=== PATIENT | female | born 1980 | race Caucasian/White ===

== ENCOUNTER 2017-02-13 16:02 | Emergency (ER) | payer OTHER ==
[~2017-02-13] VITALS: Wt 72.6 kg
[~2017-02-13 16:02] MED LIST: AMOXICILLIN500 MG PO; ANAPROX DS550 MG PO; ATARAX25 MG PO; BACTRIM DS 8001 TA1 PO; BIRTH CONTROL1 EAC1 PO; CIPROFLOXACIN500 MG PO; CLARITIN-D 12 H1 TAB PO; CLARITIN10 MG PO; COLACE1 SUP RC; FLAGYL500 MG PO; GLIPIZIDE ER10 M1 PO; HUMALOG 751 UNIT/0.0 SC; LIDEX0.05% T; LIPITOR20 MG PO; LIPITOR40 MG PO; METFORMIN1000 MG PO; MOTRIN 800 MG E4 TAB PO; MOTRIN800 MG PO; MYCELEX TROCHE10 MG MM; OMEPRAZOLE40 MG PO; PREDNICOT20 MG PO; PRENATAL1 TA3 PO; PRILOSEC10 MG/Pack PO; PRILOSEC20 MG PO; SALINE MIST 4545 ML NAS; SYNTHROID,LEV112 MCG PO; THYROID MED PO; TYLENOL WITH CO1 TA1 PO; ULTRAM50 MG PO; ZANTAC 150150 MG PO; ZANTAC150 MG PO; ZITHROMAX Z PA250 MG PO; ZOFRAN ODT4 MG PO; ZOFRAN ODT4 MG SL; ZOFRAN ODT8 MG PO; ZOFRAN4 MG PO
[2017-02-13 16:50] LABS: BASO # 0.1 10*3/uL (0.0-0.1); BASO % 0.7 % (0.0-1.0); EOS % 0.4 % (1.0-4.0); HEMATOCRIT 36.8 % (37.0-47.0); IG # 0.1 10*3/uL (0.0-0.1); LYMPH # 0.9 10*3/uL (1.3-4.4); LYMPH % 12.7 % (27.0-41.0); MEAN CELL VOLUME 85.8 fl (81.0-99.0); MEAN CORPUSCULAR HGB 25.6 pg (27.0-31.0); MEAN CORPUSCULAR HGB CONC 29.9 g/dl (33.0-37.0); MEAN PLATELET VOLUME 8.6 fl (9.6-12.3); MONO # 0.9 10*3/uL (0.1-1.0); MONO % 12.6 % (3.0-9.0); NEUT # 5.1 10*3/uL (2.3-7.9); NEUT % 72.9 % (47.0-73.0); PLATELET COUNT AUTOMATED 334 10*3/uL (130-400); RED BLOOD COUNT 4.29 10*6/uL (4.10-5.10); RED CELL DISTRI WIDTH 18.3 % (0-14.5)
[2017-02-13 17:11] LABS: ALBUMIN 2.7 gm/dl (3.1-4.5); ALKALINE PHOSPHATASE 103 U/L (45-117); BILIRUBIN, TOTAL 0.6 mg/dl (0.2-1.0); BUN 5 mg/dl (7-24); CARBON DIOXIDE 23 mmol/L (21-32); CHLORIDE 106 mmol/L (98-107); CPK 35 U/L (26-192); EST GLOM FILT AFRICAN AMERICAN > 60 ml/min; GLUCOSE 86 mg/dL (65-99); MAGNESIUM 1.8 mg/dL (1.5-2.1); POTASSIUM 3.7 mmol/L (3.5-5.1); SGOT/AST 105 IU/L (3-35); SGPT/ALT 17 U/L (12-78); SODIUM 141 mmol/L (136-145); TOTAL PROTEIN 7.6 gm/dL (6.4-8.2)
[2017-02-13 17:12] LABS: CKMB < 0.5 ng/ml (0.5-3.6); TROPONIN I < 0.015 ng/ml (<0.045)
[2017-02-13 17:19] LABS: LDH 3142 U/L (84-246)
[2017-02-13] MEDS ORDERED: PHENERGAN25 M3 PO (18:42)
[2017-02-13] MEDS ORDERED: ZITHROMAX250 MG PO (18:42)
[2017-02-13] MEDS ORDERED: ZOFRAN4 MG/5 ML PO (18:42)
[2017-02-13] MEDS ORDERED: LEVAQUIN750 M1 PO (18:59)
== END 2017-02-14 01:08 | disposition home or self-care (01) ==
LOC: ED 16:02
PROVIDERS: Physician Assistant
DX: J18.1 Lobar pneumonia, unspecified organism (principal); R11.2 Nausea with vomiting, unspecified; Z98.890 Other specified postprocedural states; Z90.49 Acquired absence of other specified parts of digestive tract; Z79.899 Other long term (current) drug therapy; Z88.0 Allergy status to penicillin; Z88.5 Allergy status to narcotic agent; Z88.1 Allergy status to other antibiotic agents; Z85.3 Personal history of malignant neoplasm of breast

== ENCOUNTER 2017-02-17 12:38 | Emergency (ER) | payer OTHER ==
[~2017-02-17] VITALS: Wt 74.8 kg
[~2017-02-17 12:38] MED LIST changes: +LEVAQUIN750 M1 PO; +PHENERGAN25 M3 PO; +ZITHROMAX250 MG PO; +ZOFRAN4 MG/5 ML PO
[2017-02-17] MEDS ORDERED: LEVAQUIN750 M1 PO (13:10)
[2017-02-17 14:13] LABS: BASO % 0.5 % (0.0-1.0); EOS % 0.5 % (1.0-4.0); HEMATOCRIT 35.8 % (37.0-47.0); HEMOGLOBIN 10.9 g/dl (12.0-16.0); LYMPH # 0.4 10*3/uL (1.3-4.4); LYMPH % 7.4 % (27.0-41.0); MEAN CELL VOLUME 85.9 fl (81.0-99.0); MEAN CORPUSCULAR HGB 26.1 pg (27.0-31.0); MEAN CORPUSCULAR HGB CONC 30.4 g/dl (33.0-37.0); MEAN PLATELET VOLUME 9.2 fl (9.6-12.3); MONO # 0.6 10*3/uL (0.1-1.0); MONO % 10.2 % (3.0-9.0); NEUT # 4.6 10*3/uL (2.3-7.9); NEUT % 80.9 % (47.0-73.0); PLATELET COUNT AUTOMATED 281 10*3/uL (130-400); RED BLOOD COUNT 4.17 10*6/uL (4.10-5.10); RED CELL DISTRI WIDTH 18.4 % (0-14.5); WHITE BLOOD COUNT 5.7 10*3/uL (4.8-10.8)
[2017-02-17 14:26] LABS: ALBUMIN 2.1 gm/dl (3.1-4.5); ALKALINE PHOSPHATASE 110 U/L (45-117); BILIRUBIN, TOTAL 0.6 mg/dl (0.2-1.0); BUN 8 mg/dl (7-24); CARBON DIOXIDE 27 mmol/L (21-32); CHLORIDE 104 mmol/L (98-107); EST GLOM FILT AFRICAN AMERICAN > 60 ml/min; GLUCOSE 90 mg/dL (65-99); POTASSIUM 3.6 mmol/L (3.5-5.1); SGOT/AST 120 IU/L (3-35); SGPT/ALT 19 U/L (12-78); SODIUM 141 mmol/L (136-145); TOTAL PROTEIN 6.7 gm/dL (6.4-8.2)
[2017-02-17 14:56] LABS: BILIRUBIN NEGATIVE (NEGATIVE); BLOOD NEGATIVE (NEGATIVE); CLARITY SL CLOUDY (CLEAR); COLOR YELLOW (YELLOW); GLUCOSE NEGATIVE (NEGATIVE); KETONE 1+ (NEGATIVE); LEUKO ESTERASE NEGATIVE (NEGATIVE); NITRITE NEGATIVE (NEGATIVE); PROTEIN TRACE (NEGATIVE); SPECIFIC GRAVITY >= 1.030 (1.005-1.030); UROBILINOGEN 0.2 E.U./dl (0.2-1.0)
[2017-02-17 15:03] LABS: MUCOUS 1+; URINE REFLEX COMMENT NO (NO)
[2017-02-17 16:07] LABS: LA>2 REFLEX 2 HR DRAW NOW
[2017-02-17] MEDS ORDERED: ZOFRAN4 MG/5 ML PO (16:21)
== END 2017-02-17 17:08 | disposition home or self-care (01) ==
LOC: ED 12:38
PROVIDERS: Physician Assistant
DX: R11.2 Nausea with vomiting, unspecified (principal); R19.7 Diarrhea, unspecified; G89.29 Other chronic pain; M25.552 Pain in left hip; M25.551 Pain in right hip; Z90.49 Acquired absence of other specified parts of digestive tract; Z98.890 Other specified postprocedural states; Z79.899 Other long term (current) drug therapy; Z88.5 Allergy status to narcotic agent; Z88.1 Allergy status to other antibiotic agents; Z88.0 Allergy status to penicillin

== ENCOUNTER 2017-03-31 15:43 | Inpatient (IN) | payer MEDICARE, MEDICAID ==
[~2017-03-31] VITALS: Ht 167.6 cm; Wt 64.4 kg
--- NOTE | ~2017-03-31 | PR ---
[place], [place] PROGRESS NOTE NAME: ARI JENKINS UNIT #: [id number] ROOM: 422 DOCTOR: MAREK EARLY MD BIRTHDATE: [birth year] DOS: 04/05/2017 SUBJECTIVE: The patient is doing much better. Alert and responsive. REVIEW OF SYSTEMS: HEENT: No trouble swallowing. No double vision. No loss of vision. No pain. ENT AND RESPIRATORY: No wheeze. No change in voice. No cough. No shortness of breath. No coughing up blood. No epistaxis. CARDIOLOGIC: No chest pain. No dizziness. No irregular heartbeat. No leg edema. No palpitations. No shortness of breath. HEMATOLOGIC AND LYMPH: No past transfusion. No fatigue. No loss of appetite. No easy bruising. GASTROENEROLOGIC: No change in bowel habits. No vomiting blood. No abdominal cramping. No nausea. No vomiting. No diarrhea. No constipation. No blood in stool. FEMALE REPRODUCTIVE: No dyspareunia. No pelvic pain. MUSCULOSKELETAL: No back pain. No muscle pain or weakness. No tingling/numbness. UROLOGIC: No pain with urination. No difficulty urinating. No frequent urination. NEUROLOGIC: No burning pain in feet. No trouble with coordination. No loss of consciousness. No headache. No tingling/numbness. No memory loss. PHYSICAL EXAMINATION: GENERAL: Pleasant woman, in no apparent distress. VITAL SIGNS: Blood pressure 107/71, respirations 18, pulse 102, temperature 98.1. HEENT: Normocephalic, atraumatic. NECK AND THYROID: Supple. No JVD, thyromegaly, or lymphadenopathy. HEART: Normal S1, S2. Regular rate and rhythm. LUNGS: Clear to auscultation and percussion. ABDOMEN: Soft. Nontender, nondistended. Bowel sounds present. EXTREMITIES: Normal ROM. No clubbing. No edema. LABORATORY DATA: White count of 3.6, hemoglobin 10.3, hematocrit 33.4 and platelet count 165, ANC of 2400. ASSESSMENT: 1. Neutropenia, which has resolved. 2. Anemia of neoplastic disorder, status post packed RBC transfusion. 3. Metastatic breast cancer. PLAN: Isolation was stopped as well as we will stop the growth factors and follow her counts. Her ANC is in decent range. The patient was advised if any fever, chills, any weakness, tiredness, to call, otherwise close followup. We will review peripheral smears. Ample time was given to the patient to ask me questions. [place], [place] PROGRESS NOTE NAME: ARI JENKINS UNIT #: [id number] ROOM: 422 DOCTOR: MAREK EARLY MD BIRTHDATE: [birth year] MAREK EARLY MD CM:MIN [phone] MAREK EARLY MD 04/06/17 0147 interface
--- NOTE | ~2017-03-31 | PR ---
[place], [place] PROGRESS NOTE NAME: ARI JENKINS UNIT #: [id number] ROOM: 422 DOCTOR: MAREK EARLY MD BIRTHDATE: [birth year] DOS: 04/04/2017 SUBJECTIVE: The patient is doing better. She is eating her breakfast. PHYSICAL EXAMINATION: GENERAL: She is a pleasant woman in no apparent distress. VITAL SIGNS: Stable. She is afebrile. HEENT: Normocephalic, atraumatic NECK AND THYROID: Supple. No JVD, thyromegaly, or lymphadenopathy. HEART: Normal S1, S2. Regular rate and rhythm. LUNGS: Clear to auscultation and percussion. ABDOMEN: Soft. Nontender, nondistended. Bowel sounds present. EXTREMITIES: Normal ROM. No clubbing. No edema. LABORATORY DATA: of 1.3, hemoglobin of 8.1, hematocrit 26.1, platelet of 143. ASSESSMENT: 1. Neutropenia and anemia secondary to chemotherapy. 2. Metastatic breast cancer. 3. Possible right lower lobe pneumonia. PLAN: She will continue the growth factors. We will be giving her a unit of packed RBC depending on the further intervention. I had detailed discussion with the patient. Her white count is getting better. MAREK EARLY MD CM:PNTRANS [phone] MAREK EARLY MD 04/05/17 0109 interface
--- NOTE | ~2017-03-31 | CON ---
[place], [place] REPORT OF CONSULTATION NAME: ARI JENKINS UNIT #: [id number] ROOM: 422 DOCTOR: MAREK EARLY MD BIRTHDATE: [birth year] DOS: 04/03/17 HISTORY OF PRESENT ILLNESS: The patient is a pleasant 36-year-old [place] woman with a history of metastatic breast cancer. A few days before admission, she started complaining of shortness of breath and chest pain. The pain was midsternal, localized, at the scale of 9/10, which has been lasting for about an hour. She also is having some diarrhea. She recently got chemotherapy at [facility] and was admitted for further evaluation. On routine CBC exam, was found to be neutropenic and consulted for further evaluation and management. PAST MEDICAL HISTORY: Metastatic breast cancer with possible mets to the lung, liver and bones, status post chemotherapy last week, probably with the Taxol and Herceptin. The patient not sure undergoing chemotherapy for the last 2 years at [facility], history of type 2 diabetes mellitus, DVTs, pulmonary embolus as described above, mets to the brain, liver, lung, bone in 2015, mixed hyperlipidemia. PAST SURGICAL HISTORY: Total mastectomy of the left breast, history of foot surgery, history of nevus excision, history of cholecystectomy, foot surgery, history of right knee surgery. SOCIAL HISTORY: No smoking, drinking, or drug abuse. FAMILY HISTORY: Mother had throat cancer at age 56. Father had heart problems and diabetes, age 58. ALLERGIES: PENICILLIN, ERYTHROMYCIN, HYDROCODONE, VANCOMYCIN. MEDICATIONS: Xanax, ibuprofen, Morphine sulfate, Zofran, oxycodone. REVIEW OF SYSTEMS: CONSTITUTIONAL: No chills. No fatigue. No fever. No loss of appetite. No night sweats. No weakness. No weight loss. HEENT: No trouble swallowing. No loss of smell. No loss of hearing. No double vision. No pain. No discharge. ENT AND RESPIRATORY: No wheeze. No sore throat. No change in voice. No hearing loss. No nose bleed. No cough. No trouble breathing through nose. No shortness of breath. No coughing up blood. No epistaxis. CARDIOVASCULAR: No chest pain. No dizziness. No irregular heartbeat. No leg edema. No pain in legs while walking. No palpitations. No shortness of breath. DERMATOLOGIC: No acne. No hives. No laceration. No mole. No rash. ENDOCRINE: No cold intolerance. No diabetes. No fatigue. No hot flashes. No polydipsia. No polyuria. No urinating frequently. No weight loss. HEMATOLOGIC AND LYMPH: No fatigue. No easy bruising. GASTROENTEROLOGIC: No change in bowel habits. No indigestion. No frequent bloating. No vomiting blood. No abdominal cramping. No nausea. No heartburn. No vomiting. No abdominal pain. No dysphagia. No diarrhea. No constipation. No blood in stool. FEMALE REPRODUCTIVE: No vaginal itching. No difficulty urinating. No heavy [place], [place] REPORT OF CONSULTATION NAME: ARI JENKINS UNIT #: [id number] ROOM: [facility] DOCTOR: MAREK EARLY MD BIRTHDATE: [birth year] periods. No dyspareunia. No sexually active. No dysmenorrhea. No pelvic pain. No breast pain. No nipple discharge. No abnormal vaginal discharge. No hot flashes. MUSCULOSKELETAL: No back pain. No muscle pain or weakness. No neck pain. No tingling/numbness. No swelling/bruising. No osteoporosis treatment. OPTHALMOLOGIC: No double vision. No diminished vision. No loss of vision. UROLOGIC: No dysuria. No frequent nighttime urination. No irregular periods. No pain with urination. No difficulty urinating. No blood in urine. No frequent urination. No urinary incontinence. NEUROLOGIC: No loss of sensation in specific body area. No vertigo. No burning pain in feet. No trouble with balance. No trouble with coordination. No loss of consciousness. No loss of feeling/power. No confusion. No headache. No tingling/numbness. PSYCHOLOGIC: No tinnitus. No headaches. No shortness of breath. No weight decrease. No nausea. No vomiting. No abdominal discomfort. No constipation. No diarrhea. No depression. No anxiety. PHYSICAL EXAMINATION: GENERAL: Pleasant woman in no apparent distress. VITAL SIGNS: Stable. She is afebrile. HEENT: Oral mucosa appears intact. The external ears are normal in appearance. Nares are patent without lesions, exudates, erythema, or inflammation. Tongue is symmetrical. Uvula is midline. NECK AND THYROID: Neck supple without palpable masses. Trachea is midline. No thyromegaly. No carotid bruit or JVD. BREASTS: Normal. Nipples unremarkable. No drainage. No lumps felt on either side. HEART: Normal S1, S2, without significant murmur, rub, or gallop. LUNGS: Clear to auscultation and percussion with good air entry bilaterally. The patient is breathing easily without the use of accessory muscles. Diaphragmatic excursions are intact. ABDOMEN: No costovertebral angle tenderness. Soft. No organomegaly or masses. Nontender. No hernias present. Liver and spleen are not palpable. LYMPHATIC: No adenopathy noted in the cervical, supraclavicular, axillary, or inguinal regions. NEUROLGIC: Nonfocal. Oriented to person, place, and time. MENTAL STATUS: Appropriate for mood and affect. PERIPHERAL PULSES: No varicosities. Femoral and pedal pulses are palpable. EXTREMITIES: Without cyanosis, clubbing, or edema. No gross anomalies. LABORATORY DATA: White count of 0.9, hemoglobin 8.7, hematocrit 28.0, platelet count of 139,000. Chemistries: Glucose of 89, EGFR more than 60. Sodium 144, potassium 3.4, chloride 110, calcium 6.9, total protein 5.8, albumin 2.1, SGOT 31, SGPT 9, alkaline phosphatase 86. ASSESSMENT: 1. Pancytopenia, especially neutropenia secondary to chemotherapy which she recently received in. 2. History of metastatic breast cancer with mets to the brain, lung, liver and bones. [place], [place] REPORT OF CONSULTATION NAME: ARI JENKINS UNIT #: [id number] ROOM: 422 DOCTOR: MAREK EARLY MD BIRTHDATE: [birth year] 3. Possible right lower lobe pneumonia. 4. Diabetes mellitus. PLAN: The patient was started on broad spectrum antibiotics. We will start her on growth factors, neutropenic precautions. Review peripheral smears records from [facility]. Depending upon that, further intervention. I had detailed discussion with the patient about it, seemed to understand it. Ample time was given to the patient to ask me questions. We will follow. Thanks for consulting and letting me participate in the care of this interesting patient. MAREK EARLY MD CM:CONSTR:REPORT OF CONSULTATION 0846 BED 04/04/17 0905 MARCELINO JANSEN [facility].BED
--- NOTE | ~2017-03-31 | EKG ---
[place], [place] ELECTROCARDIOGRAM REPORT NAME: ARI JENKINS UNIT #: [id number] ROOM: 422 DOCTOR: TOMMIE LOGAN MD BIRTHDATE: [birth year] DOS: 03/31/2017 TIME: 18:03 p.m. Sinus tachycardia rate of 102. Poor precordial R-wave progression. Nonspecific ST changes, especially in the inferior and lateral leads. Abnormal electrocardiogram. TOMMIE LOGAN MD CM:EKGRPT:ELECTROCARDIOGRAM REPORT [id number] TOMMIE LOGAN MD
[2017-03-31 15:56] VITALS: BP 103/68
[2017-03-31 16:46] LABS: HEMATOCRIT 33.2 % (37.0-47.0); HEMOGLOBIN 10.3 g/dl (12.0-16.0); MEAN CELL VOLUME 82.8 fl (81.0-99.0); MEAN CORPUSCULAR HGB 25.7 pg (27.0-31.0); MEAN PLATELET VOLUME 10.6 fl (9.6-12.3); PLATELET COUNT AUTOMATED 156 10*3/uL (130-400); RED BLOOD COUNT 4.01 10*6/uL (4.10-5.10); RED CELL DISTRI WIDTH 15.4 % (0-14.5); WHITE BLOOD COUNT 2.1 10*3/uL (4.8-10.8)
[2017-03-31 17:00] LABS: INTERNATIONAL NORM RATIO 1.1 (2.0-3.5); PROTHROMBIN TIME 11.9 SECONDS (9.0-12.4)
[2017-03-31 17:06] LABS: ALBUMIN 2.6 gm/dl (3.1-4.5); BUN 7 mg/dl (7-24); C-REACTIVE PROTEIN 3.55 MG/DL (0-0.3); CARBON DIOXIDE 30 mmol/L (21-32); CHLORIDE 105 mmol/L (98-107); EST GLOM FILT AFRICAN AMERICAN > 60 ml/min; GLUCOSE 112 mg/dL (65-99); MAGNESIUM 1.5 mg/dL (1.5-2.1); POTASSIUM 3.1 mmol/L (3.5-5.1); SGOT/AST 50 IU/L (3-35); SGPT/ALT 11 U/L (12-78); SODIUM 143 mmol/L (136-145)
[2017-03-31 17:08] LABS: ALKALINE PHOSPHATASE 108 U/L (45-117); BILIRUBIN, TOTAL 0.7 mg/dl (0.2-1.0); CPK 36 U/L (26-192); TOTAL PROTEIN 7.1 gm/dL (6.4-8.2)
[2017-03-31 17:11] LABS: CKMB < 0.5 ng/ml (0.5-3.6); TROPONIN I < 0.015 ng/ml (<0.045)
[2017-03-31 17:19] LABS: BASOPHILS 1 % (0-1); EOSINOPHILS 1 % (1-4); LYMPHOCYTE # 0.4 10*3/uL (1.3-4.4); METAMYELOCYTES 2 % (0-0); NEUTROPHIL # 1.6 10*3/uL (2.3-7.9); NEUTROPHILS 77 % (47-73); TOTAL CELLS COUNTED 100 #CELLS
[2017-03-31 17:20] LABS: PLATELET SUFFICIENCY NORMAL (NORMAL)
[2017-03-31 17:38] LABS: BILIRUBIN 1+ (NEGATIVE); BLOOD NEGATIVE (NEGATIVE); CLARITY CLEAR (CLEAR); COLOR YELLOW (YELLOW); GLUCOSE NEGATIVE (NEGATIVE); KETONE TRACE (NEGATIVE); LEUKO ESTERASE NEGATIVE (NEGATIVE); NITRITE NEGATIVE (NEGATIVE); PROTEIN 1+ (NEGATIVE)
[2017-03-31 17:58] LABS: BACTERIA 2+; URINE REFLEX COMMENT YES (NO)
[2017-03-31 18:02] VITALS: BP 110/60
[2017-03-31 20:00] VITALS: BP 100/71
[2017-03-31 20:38] VITALS: BP 100/71
[2017-03-31] MEDS ORDERED: XANAX0.5 MG PO ×2 (22:16→22:20)
[2017-03-31] MEDS ORDERED: OXYCODONE HCL10 M1 PO ×2 (22:17→22:21)
[2017-03-31] MEDS ORDERED: IBU800 MG PO ×2 (22:19→22:22)
[2017-03-31] MEDS ORDERED: MORPHINE SULFAT15 M7 PO (22:23)
[2017-04-01] VITALS: BP 104/68
[2017-04-01 06:49] LABS: HEMATOCRIT 30.7 % (37.0-47.0); HEMOGLOBIN 9.4 g/dl (12.0-16.0); MEAN CELL VOLUME 84.3 fl (81.0-99.0); MEAN CORPUSCULAR HGB 25.8 pg (27.0-31.0); MEAN CORPUSCULAR HGB CONC 30.6 g/dl (33.0-37.0); MEAN PLATELET VOLUME 10.3 fl (9.6-12.3); PLATELET COUNT AUTOMATED 132 10*3/uL (130-400); RED BLOOD COUNT 3.64 10*6/uL (4.10-5.10); RED CELL DISTRI WIDTH 15.2 % (0-14.5)
[2017-04-01 07:18] LABS: HYPOCHROMIA SLIGHT; LYMPHOCYTE # 0.4 10*3/uL (1.3-4.4); METAMYELOCYTES 6 % (0-0); NEUTROPHIL # 0.6 10*3/uL (2.3-7.9); NEUTROPHILS 58 % (47-73); PLATELET SUFFICIENCY NORMAL (NORMAL); TEAR DROP CELLS FEW; TOTAL CELLS COUNTED 50 #CELLS; TOXIC GRANULATION SLIGHT
[2017-04-01 07:26] LABS: WHITE BLOOD COUNT 1.1 10*3/uL (4.8-10.8)
[2017-04-01 07:33] LABS: ALBUMIN 2.2 gm/dl (3.1-4.5); BILIRUBIN, TOTAL 0.5 mg/dl (0.2-1.0); BUN 5 mg/dl (7-24); CARBON DIOXIDE 27 mmol/L (21-32); CHLORIDE 110 mmol/L (98-107); CHOLESTEROL 69 mg/dL (<200); EST GLOM FILT AFRICAN AMERICAN > 60 ml/min; GLUCOSE 71 mg/dL (65-99); MAGNESIUM 1.5 mg/dL (1.5-2.1); PHOSPHOROUS 2.1 mg/dL (2.5-4.9); POTASSIUM 3.4 mmol/L (3.5-5.1); SGOT/AST 38 IU/L (3-35); SGPT/ALT 13 U/L (12-78); SODIUM 145 mmol/L (136-145); TOTAL PROTEIN 6.1 gm/dL (6.4-8.2); TRIGLYCERIDES 100 mg/dl (<150); VLDL CHOLESTEROL 20 mg/dL (6-40)
[2017-04-01 07:40] LABS: ALKALINE PHOSPHATASE 90 U/L (45-117); HDL CHOLESTEROL 20 mg/dl (40-60); LDL CHOLESTEROL 29 mg/dL (9-159)
[2017-04-01 08:00] VITALS: BP 130/81
[2017-04-01 08:39] LABS: VITAMIN D, 25-HYDROXY 40.1 ng/mL (30-100)
[2017-04-01 08:40] LABS: FOLIC ACID 3.45 ng/mL (>5.38)
[2017-04-01 12:00] VITALS: BP 115/60
[2017-04-01 16:00] VITALS: BP 90/65
[2017-04-01 20:00] VITALS: BP 114/65
[2017-04-02] VITALS: BP 97/49
[2017-04-02 06:22] LABS: HEMATOCRIT 26.2 % (37.0-47.0); HEMOGLOBIN 7.9 g/dl (12.0-16.0); MEAN CELL VOLUME 84.2 fl (81.0-99.0); MEAN CORPUSCULAR HGB 25.4 pg (27.0-31.0); MEAN CORPUSCULAR HGB CONC 30.2 g/dl (33.0-37.0); PLATELET COUNT AUTOMATED 117 10*3/uL (130-400); RED BLOOD COUNT 3.11 10*6/uL (4.10-5.10); RED CELL DISTRI WIDTH 15.5 % (0-14.5)
[2017-04-02 06:29] LABS: WHITE BLOOD COUNT 0.8 10*3/uL (4.8-10.8)
[2017-04-02 06:46] LABS: EOSINOPHILS 2 % (1-4); LYMPHOCYTE # 0.4 10*3/uL (1.3-4.4); MONOCYTE # 0.1 10*3/uL (0.1-1.0); NEUTROPHIL # 0.3 10*3/uL (2.3-7.9); NEUTROPHILS 40 % (47-73); PLATELET SUFFICIENCY LOW (NORMAL); TEAR DROP CELLS FEW; TOTAL CELLS COUNTED 50 #CELLS
[2017-04-02 06:47] LABS: TOXIC GRANULATION SLIGHT
[2017-04-02 06:55] LABS: BILIRUBIN, TOTAL 0.3 mg/dl (0.2-1.0); BUN 4 mg/dl (7-24); CARBON DIOXIDE 23 mmol/L (21-32); CHLORIDE 108 mmol/L (98-107); EST GLOM FILT AFRICAN AMERICAN > 60 ml/min; GLUCOSE 88 mg/dL (65-99); POTASSIUM 2.7 mmol/L (3.5-5.1); SGOT/AST 27 IU/L (3-35); SGPT/ALT 8 U/L (12-78); SODIUM 142 mmol/L (136-145)
[2017-04-02 06:56] LABS: ALKALINE PHOSPHATASE 77 U/L (45-117); TOTAL PROTEIN 5.6 gm/dL (6.4-8.2)
[2017-04-02 08:00] VITALS: BP 110/66
[2017-04-02 12:00] VITALS: BP 110/72
[2017-04-02 14:27] LABS: HEMOGLOBIN 9.2 g/dl (12.0-16.0); MEAN CELL VOLUME 84.3 fl (81.0-99.0); MEAN CORPUSCULAR HGB 25.8 pg (27.0-31.0); MEAN CORPUSCULAR HGB CONC 30.7 g/dl (33.0-37.0); MEAN PLATELET VOLUME 11.6 fl (9.6-12.3); PLATELET COUNT AUTOMATED 148 10*3/uL (130-400); RED BLOOD COUNT 3.56 10*6/uL (4.10-5.10); RED CELL DISTRI WIDTH 15.7 % (0-14.5)
[2017-04-02 14:47] LABS: BUN 2 mg/dl (7-24); CARBON DIOXIDE 27 mmol/L (21-32); CHLORIDE 110 mmol/L (98-107); EST GLOM FILT AFRICAN AMERICAN > 60 ml/min; GLUCOSE 86 mg/dL (65-99); SODIUM 145 mmol/L (136-145)
[2017-04-02 14:57] LABS: BASOPHILS 2 % (0-1); HYPOCHROMIA SLIGHT; LYMPHOCYTE # 0.4 10*3/uL (1.3-4.4); MONOCYTE # 0.1 10*3/uL (0.1-1.0); NEUTROPHIL # 0.4 10*3/uL (2.3-7.9); NEUTROPHILS 46 % (47-73); PLATELET SUFFICIENCY LOW (NORMAL); TOTAL CELLS COUNTED 50 #CELLS; TOXIC GRANULATION SLIGHT
[2017-04-02 15:00] LABS: WHITE BLOOD COUNT 0.8 10*3/uL (4.8-10.8)
[2017-04-02 15:04] LABS: MAGNESIUM 1.2 mg/dL (1.5-2.1); POTASSIUM 4.1 mmol/L (3.5-5.1)
[2017-04-02 16:00] VITALS: BP 104/57
[2017-04-02 20:00] VITALS: BP 127/64
[2017-04-03] VITALS: BP 114/73
[2017-04-03 06:08] LABS: HEMOGLOBIN 8.7 g/dl (12.0-16.0); MEAN CELL VOLUME 82.8 fl (81.0-99.0); MEAN CORPUSCULAR HGB 25.7 pg (27.0-31.0); MEAN CORPUSCULAR HGB CONC 31.1 g/dl (33.0-37.0); MEAN PLATELET VOLUME 10.8 fl (9.6-12.3); PLATELET COUNT AUTOMATED 139 10*3/uL (130-400); RED BLOOD COUNT 3.38 10*6/uL (4.10-5.10); RED CELL DISTRI WIDTH 15.4 % (0-14.5)
[2017-04-03 06:41] LABS: CHLORIDE 110 mmol/L (98-107); POTASSIUM 3.4 mmol/L (3.5-5.1); SODIUM 144 mmol/L (136-145)
[2017-04-03 06:44] LABS: BASOPHILS 2 % (0-1); EOSINOPHILS 2 % (1-4); LYMPHOCYTE # 0.3 10*3/uL (1.3-4.4); MONOCYTE # 0.1 10*3/uL (0.1-1.0); NEUTROPHIL # 0.4 10*3/uL (2.3-7.9); NEUTROPHILS 46 % (47-73); PLATELET SUFFICIENCY NORMAL (NORMAL); POLYCHROMASIA SLIGHT; TOTAL CELLS COUNTED 50 #CELLS
[2017-04-03 06:48] LABS: WHITE BLOOD COUNT 0.9 10*3/uL (4.8-10.8)
[2017-04-03 06:50] LABS: ALBUMIN 2.1 gm/dl (3.1-4.5); ALKALINE PHOSPHATASE 86 U/L (45-117); BILIRUBIN, TOTAL 0.4 mg/dl (0.2-1.0); BUN 1 mg/dl (7-24); CARBON DIOXIDE 25 mmol/L (21-32); EST GLOM FILT AFRICAN AMERICAN > 60 ml/min; GLUCOSE 89 mg/dL (65-99); SGOT/AST 31 IU/L (3-35); SGPT/ALT 9 U/L (12-78); TOTAL PROTEIN 5.8 gm/dL (6.4-8.2)
[2017-04-03 08:00] VITALS: BP 102/62
[2017-04-03 11:22] LABS: MAGNESIUM 2.5 mg/dL (1.5-2.1)
[2017-04-03 12:00] VITALS: BP 117/70
[2017-04-03 16:00] VITALS: BP 98/68
[2017-04-03 20:00] VITALS: BP 115/62
[2017-04-04] VITALS (15 sets, daily range): BP systolic 92–119; BP diastolic 43–82
[2017-04-04 06:36] LABS: HEMATOCRIT 26.1 % (37.0-47.0); HEMOGLOBIN 8.1 g/dl (12.0-16.0); MEAN CELL VOLUME 84.5 fl (81.0-99.0); MEAN CORPUSCULAR HGB 26.2 pg (27.0-31.0); PLATELET COUNT AUTOMATED 143 10*3/uL (130-400); RED BLOOD COUNT 3.09 10*6/uL (4.10-5.10); RED CELL DISTRI WIDTH 15.9 % (0-14.5)
[2017-04-04 06:58] LABS: BASOPHILS 2 % (0-1); LYMPHOCYTE # 0.3 10*3/uL (1.3-4.4); METAMYELOCYTES 2 % (0-0); MONOCYTE # 0.4 10*3/uL (0.1-1.0); NEUTROPHIL # 0.5 10*3/uL (2.3-7.9); NEUTROPHILS 42 % (47-73); PLATELET SUFFICIENCY NORMAL (NORMAL); POLYCHROMASIA SLIGHT; TOTAL CELLS COUNTED 50 #CELLS; TOXIC GRANULATION SLIGHT
[2017-04-04 07:00] LABS: WHITE BLOOD COUNT 1.3 10*3/uL (4.8-10.8)
[2017-04-04 07:02] LABS: ALBUMIN 1.8 gm/dl (3.1-4.5); ALKALINE PHOSPHATASE 79 U/L (45-117); BILIRUBIN, TOTAL 0.3 mg/dl (0.2-1.0); CARBON DIOXIDE 24 mmol/L (21-32); CHLORIDE 112 mmol/L (98-107); EST GLOM FILT AFRICAN AMERICAN > 60 ml/min; GLUCOSE 68 mg/dL (65-99); MAGNESIUM 1.6 mg/dL (1.5-2.1); PHOSPHOROUS 1.6 mg/dL (2.5-4.9); POTASSIUM 3.8 mmol/L (3.5-5.1); SGOT/AST 21 IU/L (3-35); SGPT/ALT 7 U/L (12-78); SODIUM 142 mmol/L (136-145); TOTAL PROTEIN 5.2 gm/dL (6.4-8.2)
[2017-04-04 07:03] LABS: BUN < 1 mg/dl (7-24)
[2017-04-05 00:39] VITALS: BP 116/54
[2017-04-05 07:30] LABS: MEAN CELL VOLUME 83.1 fl (81.0-99.0); MEAN CORPUSCULAR HGB 25.6 pg (27.0-31.0); MEAN CORPUSCULAR HGB CONC 30.8 g/dl (33.0-37.0); NUCLEATED RED BLOOD CELL 0.6 % (0.0-0.0); PLATELET COUNT AUTOMATED 165 10*3/uL (130-400); RED BLOOD COUNT 4.02 10*6/uL (4.10-5.10); RED CELL DISTRI WIDTH 15.9 % (0-14.5); WHITE BLOOD COUNT 3.6 10*3/uL (4.8-10.8)
[2017-04-05 07:31] LABS: HEMATOCRIT 33.4 % (37.0-47.0); HEMOGLOBIN 10.3 g/dl (12.0-16.0)
[2017-04-05 07:49] LABS: ATYPICAL LYMPHS 1 % (0-0); BASOPHILS 1 % (0-1); EOSINOPHILS 1 % (1-4); LYMPHOCYTE # 0.5 10*3/uL (1.3-4.4); METAMYELOCYTES 2 % (0-0); MONOCYTE # 0.3 10*3/uL (0.1-1.0); MYELOCYTES 3 % (0-0); NEUTROPHIL # 2.4 10*3/uL (2.3-7.9); NEUTROPHILS 66 % (47-73); PLATELET SUFFICIENCY NORMAL (NORMAL); POLYCHROMASIA SLIGHT; PROMYELOCYTES 3 % (0-0); TOTAL CELLS COUNTED 100 #CELLS
[2017-04-05 07:53] LABS: ALBUMIN 2.1 gm/dl (3.1-4.5); BUN 1 mg/dl (7-24); CARBON DIOXIDE 23 mmol/L (21-32); CHLORIDE 111 mmol/L (98-107); EST GLOM FILT AFRICAN AMERICAN > 60 ml/min; GLUCOSE 84 mg/dL (65-99); PHOSPHOROUS 1.7 mg/dL (2.5-4.9); POTASSIUM 4.2 mmol/L (3.5-5.1); SODIUM 144 mmol/L (136-145)
[2017-04-05 08:00] VITALS: BP 94/50
[2017-04-05 12:00] VITALS: BP 101/67
[2017-04-05 16:00] VITALS: BP 98/50
[2017-04-05 20:00] VITALS: BP 84/65
[2017-04-06 00:03] VITALS: BP 100/75
[2017-04-06 06:19] LABS: HEMATOCRIT 33.5 % (37.0-47.0); HEMOGLOBIN 10.4 g/dl (12.0-16.0); MEAN CORPUSCULAR HGB 26.1 pg (27.0-31.0); NUCLEATED RED BLOOD CELL 0.5 % (0.0-0.0); PLATELET COUNT AUTOMATED 176 10*3/uL (130-400); RED BLOOD COUNT 3.99 10*6/uL (4.10-5.10); RED CELL DISTRI WIDTH 16.3 % (0-14.5); WHITE BLOOD COUNT 3.8 10*3/uL (4.8-10.8)
[2017-04-06 06:38] LABS: ALBUMIN 2.1 gm/dl (3.1-4.5); BUN 2 mg/dl (7-24); CARBON DIOXIDE 26 mmol/L (21-32); CHLORIDE 112 mmol/L (98-107); EST GLOM FILT AFRICAN AMERICAN > 60 ml/min; GLUCOSE 71 mg/dL (65-99); MAGNESIUM 1.6 mg/dL (1.5-2.1); PHOSPHOROUS 1.7 mg/dL (2.5-4.9); POTASSIUM 4.3 mmol/L (3.5-5.1); SODIUM 144 mmol/L (136-145)
[2017-04-06 07:10] LABS: BASOPHILS 1 % (0-1); EOSINOPHILS 1 % (1-4); LYMPHOCYTE # 0.4 10*3/uL (1.3-4.4); METAMYELOCYTES 4 % (0-0); MONOCYTE # 0.3 10*3/uL (0.1-1.0); MYELOCYTES 8 % (0-0); NEUTROPHIL # 2.4 10*3/uL (2.3-7.9); NEUTROPHILS 63 % (47-73); PLATELET SUFFICIENCY NORMAL (NORMAL); POLYCHROMASIA SLIGHT; PROMYELOCYTES 3 % (0-0); TOTAL CELLS COUNTED 100 #CELLS
[2017-04-06 08:00] VITALS: BP 98/52
[2017-04-06 12:00] VITALS: BP 124/72; BP 90/59
[2017-04-06 16:00] VITALS: BP 107/83
[2017-04-06 20:00] VITALS: BP 106/59
[2017-04-07] VITALS: BP 91/65
[2017-04-07 05:54] LABS: HEMOGLOBIN 10.4 g/dl (12.0-16.0); MEAN CELL VOLUME 83.7 fl (81.0-99.0); MEAN CORPUSCULAR HGB 25.6 pg (27.0-31.0); MEAN CORPUSCULAR HGB CONC 30.6 g/dl (33.0-37.0); MEAN PLATELET VOLUME 10.2 fl (9.6-12.3); PLATELET COUNT AUTOMATED 174 10*3/uL (130-400); RED BLOOD COUNT 4.06 10*6/uL (4.10-5.10); RED CELL DISTRI WIDTH 16.3 % (0-14.5); WHITE BLOOD COUNT 2.8 10*3/uL (4.8-10.8)
[2017-04-07 05:57] LABS: ALBUMIN 2.2 gm/dl (3.1-4.5); BUN 2 mg/dl (7-24); CARBON DIOXIDE 29 mmol/L (21-32); CHLORIDE 110 mmol/L (98-107); EST GLOM FILT AFRICAN AMERICAN > 60 ml/min; GLUCOSE 65 mg/dL (65-99); MAGNESIUM 1.8 mg/dL (1.5-2.1); PHOSPHOROUS 2.2 mg/dL (2.5-4.9); POTASSIUM 4.5 mmol/L (3.5-5.1); SODIUM 142 mmol/L (136-145)
[2017-04-07 06:35] LABS: BASOPHIL # 0.1 10*3/uL (0-0.1); BASOPHILS 2 % (0-1); LYMPHOCYTE # 0.6 10*3/uL (1.3-4.4); METAMYELOCYTES 4 % (0-0); MYELOCYTES 12 % (0-0); NEUTROPHIL # 0.6 10*3/uL (2.3-7.9); NEUTROPHILS 22 % (47-73); PLATELET SUFFICIENCY NORMAL (NORMAL); POLYCHROMASIA SLIGHT; PROMYELOCYTES 6 % (0-0); TOTAL CELLS COUNTED 50 #CELLS; TOXIC GRANULATION MODERATE
[2017-04-07 08:00] VITALS: BP 111/72
[2017-04-07 12:00] VITALS: BP 124/85
[2017-04-07] MEDS ORDERED: LEVAQUIN750 M1 PO (13:28)
[2017-04-07] MEDS ORDERED: DOXYCYCLINE100 M3 PO (13:28)
[2017-04-07] MEDS ORDERED: CALCIUM CARBON500 M1 PO (13:38)
[2017-04-07] MEDS ORDERED: Oscal,Oyster S500 MG PO (13:38)
[2017-04-07] MEDS ORDERED: PHOS-NAK1 PDR PO (13:38)
[2017-04-07] MEDS ORDERED: NATURE'S BLEND F1 MG PO (13:38)
[2017-04-07] MEDS ORDERED: MARINOL2.5 M1 PO (13:38)
[2017-04-07] MEDS ORDERED: MECLIZINE HCL25 M2 PO (13:38)
[2017-04-07] MEDS ORDERED: MAGNESIUM OXID400 MG PO (13:38)
== END 2017-04-07 14:45 | disposition home or self-care (01) | DRG 871 ==
LOC: ED 15:43 → EDHOLD 18:35 → 4E 18:35
PROVIDERS: Emergency Medicine; Hospitalist; Internal Medicine; Internal Medicine Hematology & Oncology; Internal Medicine Nephrology
PROC: 30233N1 Transfusion of Nonautologous Red Blood Cells into Peripheral Vein, Percutaneous Approach (ICD-10-PCS; principal; 2017-04-04)
DX: A41.9 Sepsis, unspecified organism (principal); E43 Unspecified severe protein-calorie malnutrition; D61.818 Other pancytopenia; C78.7 Secondary malignant neoplasm of liver and intrahepatic bile duct; J18.1 Lobar pneumonia, unspecified organism; E83.41 Hypermagnesemia; D68.59 Other primary thrombophilia; Z86.711 Personal history of pulmonary embolism; Z86.718 Personal history of other venous thrombosis and embolism; Z79.01 Long term (current) use of anticoagulants; E11.9 Type 2 diabetes mellitus without complications; E78.2 Mixed hyperlipidemia; Z90.49 Acquired absence of other specified parts of digestive tract; Z83.3 Family history of diabetes mellitus; Z80.8 Family history of malignant neoplasm of other organs or systems; Z88.6 Allergy status to analgesic agent; Z88.1 Allergy status to other antibiotic agents; Z88.0 Allergy status to penicillin; D64.9 Anemia, unspecified; E87.6 Hypokalemia; E83.51 Hypocalcemia; E83.39 Other disorders of phosphorus metabolism; R19.7 Diarrhea, unspecified; Z90.12 Acquired absence of left breast and nipple; Z68.22 Body mass index [BMI] 22.0-22.9, adult; C50.912 Malignant neoplasm of unspecified site of left female breast; D63.0 Anemia in neoplastic disease

== ENCOUNTER 2017-04-08 00:57 | Emergency (ER) | payer MEDICARE, MEDICAID ==
[~2017-04-08] VITALS: Ht 167.6 cm; Wt 63.5 kg
[~2017-04-08 00:57] MED LIST changes: +CALCIUM CARBON500 M1 PO; +DOXYCYCLINE100 M3 PO; +IBU800 MG PO; +MAGNESIUM OXID400 MG PO; +MARINOL2.5 M1 PO; +MECLIZINE HCL25 M2 PO; +MORPHINE SULFAT15 M7 PO; +NATURE'S BLEND F1 MG PO; +OXYCODONE HCL10 M1 PO; +Oscal,Oyster S500 MG PO; +PHOS-NAK1 PDR PO; +XANAX0.5 MG PO
[2017-04-08 01:22] LABS: HEMATOCRIT 34.6 % (37.0-47.0); HEMOGLOBIN 10.8 g/dl (12.0-16.0); MEAN CELL VOLUME 82.2 fl (81.0-99.0); MEAN CORPUSCULAR HGB 25.7 pg (27.0-31.0); MEAN CORPUSCULAR HGB CONC 31.2 g/dl (33.0-37.0); PLATELET COUNT AUTOMATED 171 10*3/uL (130-400); RED BLOOD COUNT 4.21 10*6/uL (4.10-5.10); WHITE BLOOD COUNT 2.9 10*3/uL (4.8-10.8)
[2017-04-08 01:37] LABS: ALBUMIN 2.2 gm/dl (3.1-4.5); ALKALINE PHOSPHATASE 87 U/L (45-117); BILIRUBIN, DIRECT 0.2 mg/dL (0.0-0.2); BILIRUBIN, TOTAL 0.5 mg/dl (0.2-1.0); BUN 2 mg/dl (7-24); CARBON DIOXIDE 26 mmol/L (21-32); CHLORIDE 110 mmol/L (98-107); EST GLOM FILT AFRICAN AMERICAN > 60 ml/min; GLUCOSE 85 mg/dL (65-99); MAGNESIUM 2.1 mg/dL (1.5-2.1); POTASSIUM 4.5 mmol/L (3.5-5.1); SGOT/AST 13 IU/L (3-35); SODIUM 145 mmol/L (136-145)
[2017-04-08 01:45] LABS: ATYPICAL LYMPHS 2 % (0-0); LYMPHOCYTE # 0.8 10*3/uL (1.3-4.4); MONOCYTE # 0.8 10*3/uL (0.1-1.0); NEUTROPHIL # 1.3 10*3/uL (2.3-7.9); NEUTROPHILS 44 % (47-73); PLATELET SUFFICIENCY NORMAL (NORMAL); TOTAL CELLS COUNTED 100 #CELLS
[2017-04-08 01:46] LABS: SGPT/ALT < 6 U/L (12-78)
== END 2017-04-08 02:22 | disposition home or self-care (01) ==
LOC: ED 00:57
PROVIDERS: Emergency Medicine
DX: R53.1 Weakness (principal); Z85.3 Personal history of malignant neoplasm of breast; Z88.0 Allergy status to penicillin; Z88.1 Allergy status to other antibiotic agents; Z88.6 Allergy status to analgesic agent; Z90.49 Acquired absence of other specified parts of digestive tract; Z79.899 Other long term (current) drug therapy; W18.30XA Fall on same level, unspecified, initial encounter; Y93.89 Activity, other specified; Y92.9 Unspecified place or not applicable; Y99.9 Unspecified external cause status

== ENCOUNTER 2017-04-18 06:14 | Emergency (ER) | payer MEDICARE, MEDICAID ==
[~2017-04-18] VITALS: Ht 167.6 cm; Wt 63.5 kg
[2017-04-18 07:06] LABS: BASO % 0.5 % (0.0-1.0); EOS # 0.1 10*3/uL (0.0-0.4); EOS % 1.4 % (1.0-4.0); HEMATOCRIT 34.1 % (37.0-47.0); HEMOGLOBIN 10.6 g/dl (12.0-16.0); IG # 0.1 10*3/uL (0.0-0.1); LYMPH # 0.8 10*3/uL (1.3-4.4); LYMPH % 10.6 % (27.0-41.0); MEAN CELL VOLUME 85.5 fl (81.0-99.0); MEAN CORPUSCULAR HGB 26.6 pg (27.0-31.0); MEAN CORPUSCULAR HGB CONC 31.1 g/dl (33.0-37.0); MEAN PLATELET VOLUME 9.2 fl (9.6-12.3); MONO # 0.9 10*3/uL (0.1-1.0); MONO % 11.6 % (3.0-9.0); NEUT # 5.5 10*3/uL (2.3-7.9); NEUT % 75.2 % (47.0-73.0); PLATELET COUNT AUTOMATED 281 10*3/uL (130-400); RED BLOOD COUNT 3.99 10*6/uL (4.10-5.10); RED CELL DISTRI WIDTH 16.6 % (0-14.5); WHITE BLOOD COUNT 7.3 10*3/uL (4.8-10.8)
[2017-04-18 07:27] LABS: ALBUMIN 2.6 gm/dl (3.1-4.5); ALKALINE PHOSPHATASE 82 U/L (45-117); BILIRUBIN, DIRECT 0.3 mg/dL (0.0-0.2); BILIRUBIN, TOTAL 0.8 mg/dl (0.2-1.0); BUN 11 mg/dl (7-24); CARBON DIOXIDE 30 mmol/L (21-32); CHLORIDE 108 mmol/L (98-107); EST GLOM FILT AFRICAN AMERICAN > 60 ml/min; GLUCOSE 105 mg/dL (65-99); MAGNESIUM 1.5 mg/dL (1.5-2.1); POTASSIUM 3.2 mmol/L (3.5-5.1); SGOT/AST 24 IU/L (3-35); SGPT/ALT 8 U/L (12-78); SODIUM 147 mmol/L (136-145); TOTAL PROTEIN 6.5 gm/dL (6.4-8.2)
== END 2017-04-18 14:21 | disposition short-term general hospital (02) ==
LOC: ED 06:14
PROVIDERS: Emergency Medicine
DX: C50.912 Malignant neoplasm of unspecified site of left female breast (principal); C79.31 Secondary malignant neoplasm of brain; C79.51 Secondary malignant neoplasm of bone; G93.6 Cerebral edema; E11.9 Type 2 diabetes mellitus without complications; E78.2 Mixed hyperlipidemia; Z88.0 Allergy status to penicillin; Z88.1 Allergy status to other antibiotic agents; Z88.6 Allergy status to analgesic agent; Z85.3 Personal history of malignant neoplasm of breast